=== PATIENT | female | born 1965 | race Caucasian/White ===

== ENCOUNTER 2019-05-10 06:10 | Day surgery (SDC) | payer MEDICAID ==
[~2019-05-10] VITALS: Ht 157.5 cm; Wt 95.5 kg
[~2019-05-10 06:10] MED LIST: SODIUM CHLORIDE 0.9% 1,000 ML IV ONE
[2019-05-10] MEDS ORDERED: PROPOFOL 1% 20 ML VIAL IVP ONE (06:11)
[2019-05-10] MEDS ORDERED: LIDOCAINE/PF 2% 5 ML VIAL IM ONE (06:11)
[2019-05-10] MEDS ORDERED: SODIUM CHLORIDE 0.9% 1,000 ML IV ONE (06:30)
[2019-05-10] MEDS ORDERED: LOSA50TA64 PO (11:11)
[2019-05-10] MEDS ORDERED: MV-M1TAB57 PO (11:11)
[2019-05-10] MEDS ORDERED: VALP250S4 PO (11:11)
[2019-05-10] MEDS ORDERED: RISP1 PO (11:11)
[2019-05-10] MEDS ORDERED: FLUO-191 PO (11:11)
== END 2019-05-10 10:00 | disposition home or self-care (01) ==
LOC: SURGERY 06:10
PROVIDERS: ATTEND Internal Medicine Gastroenterology
DX: K57.30 Diverticulosis of large intestine without perforation or abscess without bleeding (principal); K64.8 Other hemorrhoids; D12.0 Benign neoplasm of cecum; D12.3 Benign neoplasm of transverse colon; I10 Essential (primary) hypertension; F31.9 Bipolar disorder, unspecified; Z79.899 Other long term (current) drug therapy; Z90.49 Acquired absence of other specified parts of digestive tract; Z98.890 Other specified postprocedural states; Z90.721 Acquired absence of ovaries, unilateral; Z90.722 Acquired absence of ovaries, bilateral; Z87.891 Personal history of nicotine dependence; Z81.8 Family history of other mental and behavioral disorders; Z80.1 Family history of malignant neoplasm of trachea, bronchus and lung; Z83.3 Family history of diabetes mellitus
CPT/HCPCS: 45385; 88305; C1769; J2704; J3490; J7030